=== PATIENT | male | born 1970 | race Two or more races ===

== ENCOUNTER 2016-11-11 22:05 | Emergency (ER) | payer OTHER ==
--- NOTE | 2016-11-11 23:10 | REPUSA ---
CT of the head Clinical history: trauma. Technique: Multiple axial CT images were obtained through the head without administration of contrast . Findings: The ventricles and sulci are symmetric bilaterally. There is no evidence of acute hemorrhag e or infarct. There is no midline shift, mass effect, or extra-axial fluid collection. The osseous st ructures are unremarkable. The visualized paranasal sinuses and mastoid air cells are clear. Impression: Negative study.
--- NOTE | 2016-11-12 00:02 | EDDOCDS ---
Physician Documentation [facility] Name: Wily Benavides Age: 46 yrs Sex: Male : 1970 Arrival Date: 11/11/2016 Time: 22:05 Bed Triage 3 Private MD: NO PRIMARY PHYSICIAN, . Disposition: 11/11/16 23:42 Discharged to Home/Self Care. Impression: Concussion, Contusion of other part of head. - Condition is Stable. - Discharge Instructions: Concussion, Adult, Facial or Scalp Contusion, Head Injury, Adult. - Medication Reconciliation, Local Pharmacy Hours form. - Follow up: Private Physician; When: Call to arrange an appointment; Reason: Recheck today's complaints, Continuance of care. - Problem is new. - Symptoms are unchanged. Historical: - Allergies: no known allergies; - Home Meds: 1. lisinopril 10 mg Oral tab 1 tab once daily 2. HCTZ 12.5 mg daily 3. Prilosec 40 mg Oral cpDR 1 cap once daily 4. aspirin 81 mg Oral tab 1 tab once daily 5. Tylenol 325 mg Oral tab 2 tabs as needed (Last dose: 11/11/2016 20:15) - PMHx: Asthma; Hypertension; GERD; - PSHx: none; - Social history: Smoking status: Patient states was never smoker of tobacco. No barriers to communication noted. - Family history: Not pertinent. - : The pt / caregiver states he / she is not on anticoagulants. Home medication list is obtained from the patient, the facility MAR. - Exposure Risk Screening:: None identified. Vital Signs: 11/11 22:07 Pulse 108; Resp 18 S; Temp 98.9(O); Pulse Ox 96% on R/A; Weight 107.5 kg / 237 lbs (R); gr2 Height 5 ft. 6 in. (167.64 cm) (R); Pain 7/10; 23:58 BP 165 / 96; Pulse 98; Resp 18; Temp 97.7(O); Pulse Ox 96% on R/A; rw1 22:07 Body Mass Index 38.25 (107.50 kg, 167.64 cm) gr2 [place] Coma Score: 22:14 Eye Response: spontaneous(4). Verbal Response: oriented(5). Motor Response: obeys [facility] commands(6). Total: 15. MDM: 22:27 CT Head Without Contrast Ordered. EDMS 22:50 Financial registration complete. [email or web address] 23:05 [facility] Payment Agreement was scanned into [employer] and attached to record. [email or web address] Signatures: Dispatcher Med[employer] EDMS Apollo Mendez LPN LPN rw1 Zarina Renteria RN RN Wily Vazquez PA PA mo1 Jes Barrera, Reg Reg ks16 The chart was reviewed and I authenticate all verbal orders and agree with the evaluation and treatment provided.Attachments: 23:05 [facility] Payment Agreement ks16 MTDD
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
--- NOTE | 2016-11-14 01:02 | EDDOCDS ---
Physician Documentation [facility] Name: Wily Benavides Age: 46 yrs Sex: Male : 1970 Arrival Date: 11/11/2016 Time: 22:05 Bed Triage 3 Private MD: NO PRIMARY PHYSICIAN, . Disposition: 11/11/16 23:42 Discharged to Home/Self Care. Impression: Concussion, Contusion of other part of head. - Condition is Stable. - Discharge Instructions: Concussion, Adult, Facial or Scalp Contusion, Head Injury, Adult. - Medication Reconciliation, Local Pharmacy Hours form. - Follow up: Private Physician; When: Call to arrange an appointment; Reason: Recheck today's complaints, Continuance of care. - Problem is new. - Symptoms are unchanged. Historical: - Allergies: no known allergies; - Home Meds: 1. lisinopril 10 mg Oral tab 1 tab once daily 2. HCTZ 12.5 mg daily 3. Prilosec 40 mg Oral cpDR 1 cap once daily 4. aspirin 81 mg Oral tab 1 tab once daily 5. Tylenol 325 mg Oral tab 2 tabs as needed (Last dose: 11/11/2016 20:15) - PMHx: Asthma; Hypertension; GERD; - PSHx: none; - Social history: Smoking status: Patient states was never smoker of tobacco. No barriers to communication noted. - Family history: Not pertinent. - : The pt / caregiver states he / she is not on anticoagulants. Home medication list is obtained from the patient, the facility MAR. - Exposure Risk Screening:: None identified. Vital Signs: 11/11 22:07 Pulse 108; Resp 18 S; Temp 98.9(O); Pulse Ox 96% on R/A; Weight 107.5 kg / 237 lbs (R); gr2 Height 5 ft. 6 in. (167.64 cm) (R); Pain 7/10; 23:58 BP 165 / 96; Pulse 98; Resp 18; Temp 97.7(O); Pulse Ox 96% on R/A; rw1 22:07 Body Mass Index 38.25 (107.50 kg, 167.64 cm) gr2 [place] Coma Score: 22:14 Eye Response: spontaneous(4). Verbal Response: oriented(5). Motor Response: obeys [facility] commands(6). Total: 15. MDM: 22:27 CT Head Without Contrast Ordered. EDMS 22:50 Financial registration complete. ks16 23:05 [facility] Payment Agreement was scanned into MEDHOST and attached to record. ks16 11/12 12:11 T-Sheet-- Draft Copy was scanned into MEDHOST and attached to record. gb 11/13 14:13 Radiology Report was scanned into [employer] and attached to record. gb Signatures: Dispatcher [employer] EDMS Antoinette Armendariz, Reg Reg gb Apollo Mendez,GRAB DRIVER GRAB DRIVER rw1 Zarina RenteriaRN RN cj Wily Martell, PA PA mo1 Jes Barrera, Reg Reg ks16 The chart was reviewed and I authenticate all verbal orders and agree with the evaluation and treatment provided.Attachments: 11/11 23:05 [facility] Payment Agreement [email or web address] 11/12 12:11 T-Sheet-- Draft Copy gb Chart Complete MTDD
== END 2016-11-12 00:01 | disposition home or self-care (01) ==
LOC: M ED 22:05
DX: S06.0X0A Concussion without loss of consciousness, initial encounter (principal); S00.81XA Abrasion of other part of head, initial encounter; S00.83XA Contusion of other part of head, initial encounter; Y04.8XXA Assault by other bodily force, initial encounter; Y92.149 Unspecified place in prison as the place of occurrence of the external cause; Y93.89 Activity, other specified; Y99.8 Other external cause status; I10 Essential (primary) hypertension; J45.909 Unspecified asthma, uncomplicated; K21.9 Gastro-esophageal reflux disease without esophagitis; Z79.899 Other long term (current) drug therapy; Z79.82 Long term (current) use of aspirin

== ENCOUNTER 2017-04-12 15:38 | Emergency (ER) | payer OTHER ==
[~2017-04-12] VITALS: Ht 167.6 cm; Wt 98.0 kg
[2017-04-12] MEDS ORDERED: AMLO5TAB2 PO (15:56)
[2017-04-12] MEDS ORDERED: HYDR12.55 PO (15:56)
[2017-04-12] MEDS ORDERED: ASPI81TA85 PO (15:56)
[2017-04-12] MEDS ORDERED: ADACEL/BOOSTRIX VACCINE (DIPHTH/PERTUSS/ACELL/TETANUS)0.5ML SYR (90715) IM ONE (17:15)
[2017-04-12] MEDS ORDERED: NORCO, ANEXSIA 5/325MG TABLET (HYDROcodone/ACETAMINOPHEN) PO ONE (17:15)
[2017-04-12] MEDS ORDERED: ceFAZolin 1GM INJ (J0690) IM ONE (17:15)
[2017-04-12] MEDS ORDERED: KEFL500C17 PO (17:59)
[2017-04-12] MEDS ORDERED: NORCOTAB PO (17:59)
[2017-04-12 18:09] VITALS: BP 179/103
--- NOTE | 2017-04-13 07:11 | REP ---
RIGHT FINGERS, FOUR VIEWS: HISTORY: Injury. There is a comminuted fracture of the distal phalange of the 3rd digit. There is no dislocation. The joint spaces are normal in appearance. IMPRESSION: Comminuted fracture of the distal phalange of the 3rd digit. Signed by Jose Raul Crocker MD 04/13/2017 08:15 A
== END 2017-04-12 18:16 | disposition home or self-care (01) ==
LOC: M ED 15:38
DX: S61.312A Laceration without foreign body of right middle finger with damage to nail, initial encounter (principal); S62.662B Nondisplaced fracture of distal phalanx of right middle finger, initial encounter for open fracture; W23.1XXA Caught, crushed, jammed, or pinched between stationary objects, initial encounter; Y92.149 Unspecified place in prison as the place of occurrence of the external cause; Y93.89 Activity, other specified; Y99.9 Unspecified external cause status
CPT/HCPCS: 12002; 73140; 90471; 90715; 96372; 99282; J0690